=== PATIENT | male | born 1960 | race Caucasian/White ===

== ENCOUNTER 2017-05-12 06:22 | Day surgery (SDC) | payer BC ==
[2017-05-11 10:58] VITALS: BMI 25.2
[2017-05-12] VITALS (9 sets, daily range): BP systolic 114–130; BP diastolic 78–88; PULSE 73–78; RESP 14–22; Ht 170.2 cm; Wt 82.3 kg
[~2017-05-12] VITALS: Ht 170.2 cm; Wt 82.3 kg
[2017-05-12] MEDS ORDERED: EMTR1TAB16 PO (06:33)
[2017-05-12] MEDS ORDERED: MULT-551 PO (06:33)
[2017-05-12] MEDS ORDERED: SULF1TAB31 PO (06:33)
[2017-05-12] MEDS ORDERED: IBUP-1542 PO (06:33)
[2017-05-12] MEDS ORDERED: HYDR-906 PO (06:33)
[2017-05-12] MEDS ORDERED: DOLU50TA PO (06:33)
[2017-05-12] MEDS ORDERED: ALLO100T PO (06:33)
[2017-05-12] MEDS ORDERED: CALC500O PO (06:33)
[2017-05-12] MEDS ORDERED: BACL10TA PO (06:33)
[2017-05-12] MEDS ORDERED: VIT D (06:33)
[2017-05-12] MEDS ORDERED: COMPLEX (06:33)
--- NOTE | 2017-05-12 07:33 | HPN ---
Date/Time of Note Date/Time of Note DATE: 05/12/17 TIME: 07:33 Interval H&P Admission Note Pt. seen H&P reviewed: No system changes BALDEV BARRIOS MD May 12, 2017 07:33
[2017-05-12] MEDS ORDERED: ROPIVACAINE 0.5 % 30 ML VIAL ONE (07:38)
[2017-05-12] MEDS ORDERED: CEFAZOLIN 1 GM/50 ML (PMX) 50 ML IVPB SCH (08:00)
[2017-05-12] MEDS ORDERED: CEFAZOLIN 1 GM INJ ONE (08:48)
[2017-05-12] MEDS ORDERED: LIDOCAINE 2% (SDV) 5 ML INJ ONE (08:48)
[2017-05-12] MEDS ORDERED: PROPOFOL 20 ML ONE (08:48)
[2017-05-12] MEDS ORDERED: ONDANSETRON 4 MG INJ ONE (08:49)
[2017-05-12] MEDS ORDERED: BUPIVACAINE 0.25% (MPF) 30 ML INJ ONE (08:49)
[2017-05-12] MEDS ORDERED: BACITRACIN/POLYMYXIN 28.35 GM OINT TOP ONE (08:53)
[2017-05-12] MEDS ORDERED: EPHEDrine SULFATE 50 MG/5 ML SYG IV PRN (09:00)
[2017-05-12] MEDS ORDERED: METOCLOPRAMIDE 10 MG INJ IV PRN (09:00)
[2017-05-12] MEDS ORDERED: MEPERIDINE 25 MG INJ IV PRN (09:00)
[2017-05-12] MEDS ORDERED: FENTAnyl 50 MCG/ML VIAL IV PRN ×3 (09:00)
[2017-05-12] MEDS ORDERED: MIDAZOLAM 1 MG/ML 2 ML INJ IV PRN (09:00)
[2017-05-12] MEDS ORDERED: HYDROmorphONE (0.2 MG/ML) 10ML SYG IV PRN ×3 (09:00)
[2017-05-12] MEDS ORDERED: OXYCODONE/ACETAMINOPHEN (5/325) TAB PO PRN ×2 (09:00)
[2017-05-12] MEDS ORDERED: hydrALAzine 20 MG INJ IV PRN (09:00)
[2017-05-12] MEDS ORDERED: ONDANSETRON 4 MG INJ IV PRN (09:00)
[2017-05-12] MEDS ORDERED: LABETALOL HCL 20MG INJ IV PRN (09:00)
[2017-05-12] MEDS ORDERED: DIPHENHYDRAMINE 50 MG INJ IV PRN (09:00)
--- NOTE | 2017-05-12 09:06 | SIPON ---
Date/Time of Note Date/Time of Note DATE: 05/12/17 TIME: 09:05 Operative Report Surgeon see signature line Anesthesia Type: general Estimated Blood Loss: 10 - 50 ml's Transfusion Required: no Grafts/Implants plate and screws Complications: BALDEV Alex MD May 12, 2017 09:06
[2017-05-12] MEDS ORDERED: POLYMYXIN/BACITRACIN 1L IRRIG IRR ONE (09:26)
[2017-05-12] MEDS ORDERED: POLYMYXIN/BACITRACIN 1L IRRIG ONE (09:32)
--- NOTE | 2017-05-12 12:32 | RADRPT ---
PROCEDURE: Intraoperative fluoroscopy. CLINICAL INDICATION: Intraoperative fluoroscopy. COMPARISON: None relevant listed. TECHNIQUE: Intraoperative fluoroscopy of the ankle was performed. Fluoroscopy time: 2 minutes # Series / Images: 7 Estimated dose: 3.24 mGy FINDINGS: Intraoperative fluoroscopy was provided for surgical planning and support purposes. Plate and screw fixation of a distal fibular fracture in anatomic alignment. A single screw transfixes the medial m alleolus fracture in anatomic alignment. The mortise is symmetric after reduction. IMPRESSION: 1. Intraoperative fluoroscopy was provided for surgical planning and support purposes. 2. Open reduction and internal fixation of medial malleolus and distal fibular fractures into anatom ic alignment. RPTAT: [facility] Physician Charito Date Time Electronically viewed and signed by Physician Charito on 05/12/2017 12:32 LG/
--- NOTE | 2017-05-13 07:33 | OPR ---
DATE OF OPERATION: 05/12/2017 SURGEON: Joseph Romero MD PREOPERATIVE DIAGNOSIS: Left ankle fracture/dislocation; bimalleolar fracture. POSTOPERATIVE DIAGNOSIS: Left ankle fracture/dislocation; bimalleolar fracture. OPERATION PERFORMED: 1. Open reduction, internal fixation of left ankle fracture/dislocation, with diastasis, using a TightRope from [employer], 4.5 mm cannulated screw on the medial malleolus, and a small fragment compression plate from [employer], 10 holes, on the distal fibula. 2. Interpretation, intraoperative fluoroscopy x-rays. 3. Application of short-leg fiberglass cast. TOURNIQUET TIME: 40 minutes. ESTIMATED BLOOD LOSS: 100 mL. COMPLICATIONS: None. OPERATIVE PROCEDURE: Patient was taken to the operating room. General anesthetic given to patient the left side. Left leg prepped and draped in the usual sterile manner, exsanguinated with an Esmarch bandage, tourniquet inflated to 300 mmHg. X-ray draped and brought over the field. Patient had a fracture/dislocation with a spiral fracture of the fibula over the syndesmosis. The fibula was reduced and stabilized with a compression plate, with 2 distal cancellous screws and 7 proximal cortical screws, with good reduction. A TightRope was applied for reduction of the syndesmosis. The small medial malleolar fragment was secured with one 4.5 mm cannulated screw. Final x- rays in AP and lateral views stable, with no evidence of . Wound irrigated with antibiotic solution. Hemostasis was established using cautery. Fascia closed with number 1 Vicryl suture, skin closed with darren, compression bandage applied, ample padding for the heel and the malleoli and a short-leg fiberglass cast was applied. Dictated By: Joseph Romero MD /caden/abdirizak /Document#: [id number]
== END 2017-05-12 11:10 | disposition home or self-care (01) ==
LOC: SDS 06:22
PROVIDERS: ATTEND Specialist
DX: S82.843A Displaced bimalleolar fracture of unspecified lower leg, initial encounter for closed fracture (principal); S82.842D Displaced bimalleolar fracture of left lower leg, subsequent encounter for closed fracture with routine healing; X58.XXXD Exposure to other specified factors, subsequent encounter; E11.9 Type 2 diabetes mellitus without complications
CPT/HCPCS: 27814; 73610; C1713; J0690; J2795; Z7512; Z7610; J2405